=== PATIENT | female | born 1990 | race Caucasian/White ===

== ENCOUNTER 2016-11-26 09:38 | Emergency (ER) | payer OTHER ==
[~2016-11-26] VITALS: Ht 149.9 cm; Wt 50.6 kg
[2016-11-26] MEDS ORDERED: ATARAX,VISTARIL50 MG PO (11:59)
[2016-11-26 12:00] VITALS: BP 113/89
== END 2016-11-26 12:00 | disposition home or self-care (01) ==
LOC: EME 09:38
DX: F41.0 Panic disorder [episodic paroxysmal anxiety] (principal); F43.23 Adjustment disorder with mixed anxiety and depressed mood; F17.200 Nicotine dependence, unspecified, uncomplicated
CPT/HCPCS: 90839; 99281; 99284